=== PATIENT | male | born 1970 | race Caucasian/White ===

== ENCOUNTER 2024-06-26 10:38 | Observation (INO) | payer MEDICARE, SELFPAY ==
[2024-06-26] VITALS (13 sets, daily range): BP systolic 100–139; BP diastolic 20–99; BMI 42.7; BMI 41.4
[2024-06-26 03:47] LABS: % Basophils 0.7 % (0-2); % Immature Granulocytes 0.3 % (0-0.5); % Lymphocytes 33.1 % (20.5-51.1); % Monocytes 12.9 % (1.7-9.3); Absolute Basophils 0.1 10^3/uL (0-0.2); Absolute Eosinophils 0.3 10^3/uL (0-0.7); Absolute Monocytes 1.2 10^3/uL (0.1-0.6); Absolute Neutrophils 4.5 10^3/uL (1.4-6.5); Hematocrit 41.4 % (39.0-52.0); Hemoglobin 13.8 g/dL (13.0-18.0); Mean Corp Hgb Conc. 33.3 g/dL (33.0-37.0); Mean Corpuscular Hgb 28.5 pg (27.0-31.0); Mean Corpuscular Volume 85.4 fL (80.0-94.0); Mean Platelet Volume 9.6 fL (7.4-10.4); Nucleated Red Blood Cells % 0 % (-); Platelet Count 294 10^3/uL (130-400); Red Blood Cell Count 4.85 10^6/uL (4.70-6.10); Red Cell Dist. Width 13.9 % (11.5-14.5)
[2024-06-26 03:49] LABS: Glucose - Point of Care 80 mg/dl (70-99)
[2024-06-26 04:01] LABS: ALT (SGPT) 18 U/L (0-50); AST (SGOT) 27 U/L (17-59); Albumin 4.2 g/dl (3.5-5.0); Alkaline Phosphatase 48 U/L (38-126); Blood Urea Nitrogen 18 mg/dl (9-20); Calcium 9.7 mg/dl (8.4-10.2); Carbon Dioxide 22 mmol/L (22-30); Chloride 104 mmol/L (98-107); Estimated Creatinine Clearance 109 ml/min; Glucose 64 mg/dl (70-99); Potassium 3.4 mmol/L (3.5-5.1); Sodium 135 mmol/L (135-145); Total Bilirubin 0.5 mg/dl (0.2-1.3); Total Protein 7.1 g/dl (6.3-8.2); eGFR > 60.00
--- NOTE | 2024-06-26 04:03 | ED.GENMED ---
History of Present Illness
<Theron Carnes MD, Resident - Last Filed: 06/26/24 07:33>
General
Chief Complaint: Heart Rate Problem
Source: patient and ambulance crew
Time Seen by Provider: 06/26/24 03:38
History of Present Illness
History of Present Illness:
53-year-old male, Mr. Tom Doss, past medical history significant for A-fib status post ablation 2021, ISAMAR on CPAP, PTSD presented to the ER reporting palpitations and severe diaphoresis which all started an hour ago. Patient was talking on phone
with his brother at the time when this started, he feels very weak and mild numbness in his hands, SOB for a couple of minutes. Patient also reports mild chest pressure in the presternal area without any radiation. Patient denies headache,
lightheadedness/dizziness, fever/chills, abdominal pain, bladder/bowel disturbances. No recent history of travel, exposure to sick contacts, calf pain. Patient does not report any current stressors, no caffeine intake. Patient reports vaping
marijuana for PTSD. Patient quit vaping nicotine in 2021. Patient acknowledges that he was not adequately hydrated yesterday.
Past History
<Theron Carnes MD, Resident - Last Filed: 06/26/24 07:33>
Past History
ED Past Medical History: Other (Cellulitis of the abd.)
ED Past Surgical History: Other (Partial bladder removal,)
Social History
Tobacco: Non-smoker
Alcohol: Occasional
Personal: Single
Living: with family
Employment: Employed
Review of Systems
<Theron Carnes MD, Resident - Last Filed: 06/26/24 07:33>
Review of Systems
All Other Systems: ROS reviewed and negative except as documented in HPI and ROS
Phy Exam
<Theron Carnes MD, Resident - Last Filed: 06/26/24 07:33>
Physical Exam
Physical Exam:
GEN: Well appearing, NAD, , patient is profusely sweating ,WDWN
Eyes: PERRLA, EOMs intact, no scleral icterus
HENT: NCAT, oral mucosa moist, no JVD, no cervical adenopathy.
Lungs: CTAB, no wheezes, rales, rhonchi, normal chest wall excursion
Cardiac: Bradycardia, S1, S2+, no M/R/G, peripheral edema 2+. Radial pulses 2+ bilat
Abdomen: S, NT, ND, NABS, no masses or hepatosplenomegaly
Neuro: AO x 3, no focal deficits to BUE/BLE, normal sensation throughout
Skin: No rashes, petechiae. Normal color, no pallor or jaundice.
Psych: Calm, cooperative, proper hygiene
Course
<Karthikela Bi Carnes MD, Resident - Last Filed: 06/26/24 07:33>
Orders/Labs/Results
Orders:
Orders
06/26/24 03:36
Electrocardiogram (*1) Urgent
Reason for Study: Chest Pain
Cardiac Monitoring- Treatment ONCE
EKG- Treatment ONCE
IV Insert/Care/Rem.- Treatment PRN
Pulse Ox/spot Check [RESP] Urgent
Quantity: 1
Special Instructions: ON ROOM AIR
06/26/24 03:38
Complete Blood Count/With Diff Urgent
Comprehensive Metabolic Panel Urgent
Troponin I Urgent
06/26/24 04:43
CR Chest - 2 Views Urgent
Comment:
Reason For Exam: palpitations
06/26/24 05:02
Potassium Chloride 10% Elixir [KCl Elixir] 40 meq PO NOW STA
06/26/24 06:20
EKG [Electrocardiogram (*1)] Urgent
Reason for Study: Syncope
EKG- Treatment ONCE
06/26/24 06:47
Troponin I Stat
Abnormal Lab Results
06/26/24 06/26/24
03:38 06:46
Absolute Monos (auto) 1.2 H 10^3/uL
(0.1-0.6)
Monocytes % 12.9 H %
(1.7-9.3)
Potassium 3.4 L mmol/L
(3.5-5.1)
Glucose 64 L mg/dl
(70-99)
POC Glucose 126 H mg/dl
(70-99)
06/26/24 03:38
06/26/24 03:38
Vital Signs
Initial and Last Documented VS:
Initial Vital Signs
Temp Pulse Resp BP Pulse Ox
97.2 F 60 23 104/88 97
06/26/24 03:37 06/26/24 03:37 06/26/24 03:37 06/26/24 03:37 06/26/24 03:37
Last Documented Vital Signs
Temp Pulse Resp BP Pulse Ox
97.2 F 49 16 125/69 98
06/26/24 03:37 06/26/24 07:15 06/26/24 07:23 06/26/24 07:23 06/26/24 07:23
<Siva Gomes, - Last Filed: 06/26/24 07:31>
Orders/Labs/Results
Orders:
Orders
06/26/24 03:36
Electrocardiogram (*1) Urgent
Reason for Study: Chest Pain
Cardiac Monitoring- Treatment ONCE
EKG- Treatment ONCE
IV Insert/Care/Rem.- Treatment PRN
Pulse Ox/spot Check [RESP] Urgent
Quantity: 1
Special Instructions: ON ROOM AIR
06/26/24 03:38
Complete Blood Count/With Diff Urgent
Comprehensive Metabolic Panel Urgent
Troponin I Urgent
06/26/24 04:43
CR Chest - 2 Views Urgent
Comment:
Reason For Exam: palpitations
06/26/24 05:02
Potassium Chloride 10% Elixir [KCl Elixir] 40 meq PO NOW STA
06/26/24 06:20
EKG [Electrocardiogram (*1)] Urgent
Reason for Study: Syncope
EKG- Treatment ONCE
06/26/24 06:47
Troponin I Stat
Abnormal Lab Results
06/26/24 06/26/24
03:38 06:46
Absolute Monos (auto) 1.2 H 10^3/uL
(0.1-0.6)
Monocytes % 12.9 H %
(1.7-9.3)
Potassium 3.4 L mmol/L
(3.5-5.1)
Glucose 64 L mg/dl
(70-99)
POC Glucose 126 H mg/dl
(70-99)
06/26/24 03:38
06/26/24 03:38
Vital Signs
Initial and Last Documented VS:
Initial Vital Signs
Temp Pulse Resp BP Pulse Ox
97.2 F 60 23 104/88 97
06/26/24 03:37 06/26/24 03:37 06/26/24 03:37 06/26/24 03:37 06/26/24 03:37
Last Documented Vital Signs
Temp Pulse Resp BP Pulse Ox
97.2 F 49 16 125/69 98
06/26/24 03:37 06/26/24 07:15 06/26/24 07:23 06/26/24 07:23 06/26/24 07:23
<Theron Carnes MD, Resident - Last Filed: 06/26/24 07:33>
MDM/Problems Addressed
Differential Diagnosis Includes:
Vasovagal reflex versus ACS versus heart blocks versus dehydration causing electrolyte abnormalities versus hypoglycemia.
MDM/Problems Addressed:
He was bradycardic at presentation, 60. Patient reports he is on flecainide 100 mg twice daily, metoprolol 50 mg twice daily.
Patient feels that his chest pain, diaphoresis and nausea has improved.
CBC unremarkable
Potassium 3.4, hypokalemia repleted. Blood glucose at 64 on arrival, later at 80.
Chest x-ray unremarkable.
1st troponin�0.019
Second troponin�<0.012.
Patient persistently bradycardic between 39-45, likely related to his medications(flecainide, metoprolol)
Patient needs to be observed. Cardiology notified.
<Siva Gomes DO - Last Filed: 06/26/24 07:31>
MDM/Problems Addressed
MDM/Problems Addressed:
Chest pain, diaphoresis, hypokalemia
<Siva Gomes DO - Last Filed: 06/26/24 07:31>
*Radiology
Radiology exam reviewed: preliminary read by ED provider
*Pulse Oximetry
Patient hypoxic: no
*EKG
Interpreted by ED Provider?: Yes
Interpretation: abnormal
Rate: bradycardiac
Rhythm: sinus
QRS Pattern: right bundle branch block
Ischemia: no ischemia
*Rehab Trainer Interpretation
Rate: normal
Interpretation: normal
Rhythm: sinus
*Critical Care Note
Total Time (30-74mins, 75-104mins- exclusive of procedures): Not Applicable
Data Reviewed
Source: patient
Further Testing Considered But Not Given:
considered CTA but no hypoxia, no tachypnea or tachycardia
ED Attending Note
<Theron Carnes MD, Resident - Last Filed: 06/26/24 07:33>
-
Portions of this chart may have been created with voice recognition software.� Occasional wrong word or��sound alike� substitutions may have occurred due to the inherent limitations of voice recognition software.
<Siva Gomes DO - Last Filed: 06/26/24 07:31>
ED Attending Note
Patient seen and examined by attending physician: Yes
I performed a history and physical exam of patient and discussed management with resident, I reviewed resident's note and agree with documented findings and plan of care.: Yes
ED Attending Note:
53-year-old male who was on the phone with his brother when he suddenly developed diaphoresis. Patient states he had a twinge of chest discomfort as well but states it was very mild and felt 'superficial'. Patient denies shortness of breath. No
palpitations. States he feels much better on my evaluation. Exam: Awake and alert, stable, heart rate 60's on alarm security or surveillance monitor in sinus. Assessment plan: Patient has had a history of A-fib in the past. He did take a rhythm strip at home on his
phone and presents it. His heart rate is 108 and appears to be sinus. Initial troponin noted. Check repeat troponin. Otherwise patient appears well. If repeat troponin negative I do think he is safe for discharge and outpatient follow-up
Discharge Plan
Departure
Patient with high blood pressure during this ER visit?: No
Referrals:
Roxann Moyer DO [Non-Admitting Privileges] -
Interventions
Interventions:
*Risk Screen - Suicide Last Done: 06/26/24 03:37
*General Assessment Last Done: 06/26/24 03:37
*Neglect/Abuse Screening Last Done: 06/26/24 03:37
*ED COVID-19 Vaccine History Last Done: 06/26/24 03:37
ED- Cardiac Assessment Last Done: 06/26/24 03:51
ED- Pulmonary Assessment Last Done: 06/26/24 03:51
Discharge Date and Time
Print Language: NEPALI
[2024-06-26 04:12] LABS: Troponin I 0.019 ng/ml
[2024-06-26] MEDS: KCL ELIXIR 40 MEQ PO (05:18)
[2024-06-26 06:54] LABS: Glucose - Point of Care 126 mg/dl (70-99)
[2024-06-26 07:26] LABS: Troponin I < 0.012 ng/ml
--- NOTE | 2024-06-26 10:23 | HPS.HSE ---
Family Physician
-
Family Physician: Amy Bowman MD
Chief Complaint
-
weakness
History of Present Illness
53-year-old male extensive past medical history history of atrial fibrillation follows with [facility] case resolution specialist who is presenting home severe diaphoresis which started earlier today. Patient noticed that his heart rate was lower. State of
significant diaphoresis. No fevers. Dry cough. States usually with atrial fibrillation his heart rates around 10 5-1 10. He was told to call cardiology office if tachycardia persist for greater than 1 hour. Patient denies any chest pain or
lightheadedness or dizziness. Denies any dysuria hematuria or diarrhea. Denies any significant stressors. Denies heavy caffeine intake. Takes marijuana for his PTSD. In the ER patient was found to be bradycardic and was admitted for further
management.
Medical History
Past Medical History
Past Medical History: Reports Other
Additional Past Medical History:
Atrial fibrillation status post ablation
PTSD
Anxiety
BPH
Pericardial effusion status post drainage
Insomnia
BPH
Morbid obesity to excess calories
ISAMAR on CPAP
Past Surgical History: Reports Other
Additional Past Surgical History:
Pericardial drainage
Ablation
Urological surgery
Social History
Alcohol: Former
Drug: Marijuana
Family History
Family History: Not pertinent
Allergies / Home Medications
Allergies reflects when Allergies were last updated in [employer].
Home Medications with original date entered in [employer]
Allergy/Medication List:
Allergies
Allergy/AdvReac Type Severity Reaction Status Date / Time
No Known Allergies Allergy Verified 06/26/24 08:24
Home Medications
Ambien 1 tab PO HS PRN sleep 06/26/24
Atarax 1 tab PO DAILY PRN allergies 06/26/24
Medical Marijuana 1 dose PO DAILY PRN PTSD/anxiety 06/26/24
apixaban 5 mg tablet (Eliquis) 5 mg PO BID 06/26/24
bupropion HCl 150 mg 24 hr tablet, extended release (Wellbutrin XL) 150 mg PO DAILY@0200 06/26/24
bupropion HCl 300 mg 24 hr tablet, extended release (Wellbutrin XL) 300 mg PO DAILY@1400 06/26/24
buspirone 30 mg tablet 30 mg PO BID 06/26/24
finasteride 1 mg tablet 1 mg PO DAILY 06/26/24
flecainide 100 mg tablet 100 mg PO Q12H 06/26/24
gabapentin 1 tab PO BID 06/26/24
loratadine 10 mg tablet (Claritin) 10 mg PO DAILY PRN allergies 06/26/24
metoprolol succinate 50 mg tablet,extended release 24 hr 50 mg PO BID 06/26/24
tamsulosin 0.4 mg capsule 0.8 mg PO DAILY 06/26/24
Review of Systems
-
History Source: Patient
Constitutional: Reports Fatigue
EENT: Reports No Symptoms
Respiratory: Reports No Symptoms
Cardiac: Reports See HPI
Abdomen/GI: Reports No Symptoms
: Reports No Symptoms
Musculoskeletal: Reports No Symptoms
Skin: Reports No Symptoms
Neurological: Reports No Symptoms
Endocrine: Reports No Symptoms
Hematologic/Lymphatic: Reports No Symptoms
Psych: Reports No Symptoms
Physical Exam
Vital Signs
Vital Signs
Temp Pulse Resp BP Pulse Ox
97.5 F 55 24 127/90 100
06/26/24 08:00 06/26/24 08:00 06/26/24 08:00 06/26/24 08:00 06/26/24 08:00
Physical Exam
General: Well Developed, Well Nourished, No Apparent Distress and Morbidly Obese
HEENT: NormoCephalic, Moist mucous membranes and Atraumatic
Respiratory: Clear
Cardiac: S1/S2 and Regular Rhythm; No Murmur or Rub
GI: Soft, Non Tender, Non Distended and Normal Bowel Sounds; No Organomegaly
Rectal: Deferred by Provider
Musculoskeletal: No Clubbing, No Cyanosis and No Edema
Skin: No Rash
Neuro: Awake, Alert, Oriented, AO x 3, No Motor Deficits and Nonfocal/grossly intact
Psych: Calm
Laboratory Results
-
06/26/24 03:38
06/26/24 03:38
Laboratory Results
Total Bilirubin 0.5 mg/dl (0.2-1.3) 06/26/24 03:38
AST 27 U/L (17-59) 06/26/24 03:38
ALT 18 U/L (0-50) 06/26/24 03:38
Alkaline Phosphatase 48 U/L (38-126) 06/26/24 03:38
Troponin I < 0.012 ng/ml D 06/26/24 06:47
Impression/Plan
-
#Bradycardia likely secondary to metoprolol and flecainide
#Atrial fibrillation likely chronic status post ablation
Monitor on telemetry
Trend troponin x 1 normal. Plateau so far.
EKG with normal sinus rhythm with bradycardia heart rate of 47.
Heart rate around 55 on telemetry
Consulted cardiology who is recommending to make following changes which is documented as per there note and will hold off on officially seeing patient for now.
Recommending to decrease Toprol 25 mg twice daily and to decrease flecanide at 50 every 12. Started WITH HOLD PARAMETERS and hold AM dose for both.
Continue Eliquis
Check TSH
Anxiety/PTSD
Continue Wellbutrin and BuSpar
BPH
Continue Flomax and finasteride
ISAMAR on CPAP
Patient stated friend will bring in own machine
Hypokalemia
Replete and monitor
DVT ppx-lovenox
I spent a total of 78 minutes with the patient or on the floor. More than 50% of this time involved counseling and coordination of care.
--- NOTE | 2024-06-26 11:22 | W.PN.UPDATE ---
Update Note
Progress Note Update
Cardiology asked to comment regarding patient's bradycardia. If patient is felt to have symptomatic bradycardia then would hold morning dose of both metoprolol and flecainide and starting tonight change standing dose to metoprolol XL 25 mg twice
daily and flecainide 50 mg twice daily.
[2024-06-26] MEDS: FLOMAX 0.8 MG PO (13:49)
[2024-06-26] MEDS: WELLBUTRIN XL (24 hour extended release) 300 MG PO (13:49)
[2024-06-26 13:58] LABS: Troponin I < 0.012 ng/ml
--- NOTE | 2024-06-26 16:03 | PTCARENOTE ---
RN reviewed with patient his medication list three times. Updated pharmacy on his medication administration time preferences per his home routine. See MAR for details.
[2024-06-26] MEDS: TAMBOCOR PO (16:17)
[2024-06-26] MEDS: TOPROL XL PO (16:17)
[2024-06-26] MEDS: BUSPAR 30 MG PO (16:18)
[2024-06-26] MEDS: ELIQUIS 5 MG PO (16:18)
--- NOTE | 2024-06-26 22:38 | W.PN.UPDATE ---
Update Note
Progress Note Update
pt requesting ambien 10mg. He takes nightly at 0200.
PDMD checked and winsome script active and verified.
Winsome ordered
[2024-06-27] MEDS: PROSCAR 5 MG PO (01:58)
[2024-06-27] MEDS: ELIQUIS 5 MG PO ×2 (01:58→14:12)
[2024-06-27] MEDS: BUSPAR 30 MG PO ×2 (01:58→14:12)
[2024-06-27] MEDS: NEURONTIN 600 MG PO ×2 (01:58→14:12)
[2024-06-27] MEDS: TAMBOCOR PO (01:59)
[2024-06-27] MEDS: TOPROL XL PO (01:59)
[2024-06-27] MEDS: WELLBUTRIN XL (24 hour extended release) 150 MG PO (01:59)
[2024-06-27] MEDS: CLARITIN 10 MG PO (01:59)
[2024-06-27] MEDS: AMBIEN 10 MG PO (01:59)
[2024-06-27 03:43] VITALS: BP 116/67
[2024-06-27 07:00] VITALS: BP 113/59
[2024-06-27 07:14] LABS: % Basophils 0.8 % (0-2); % Eosinophils 2.6 % (0-6); % Immature Granulocytes 0.5 % (0-0.5); % Lymphocytes 25.6 % (20.5-51.1); % Monocytes 13.3 % (1.7-9.3); % Neutrophils 57.2 % (42.2-75.2); Absolute Basophils 0.1 10^3/uL (0-0.2); Absolute Eosinophils 0.2 10^3/uL (0-0.7); Absolute Lymphocytes 1.6 10^3/uL (1.2-3.4); Absolute Monocytes 0.8 10^3/uL (0.1-0.6); Absolute Neutrophils 3.5 10^3/uL (1.4-6.5); Hemoglobin 13.5 g/dL (13.0-18.0); Mean Corp Hgb Conc. 33.8 g/dL (33.0-37.0); Mean Corpuscular Hgb 29.5 pg (27.0-31.0); Mean Corpuscular Volume 87.3 fL (80.0-94.0); Mean Platelet Volume 9.5 fL (7.4-10.4); Nucleated Red Blood Cells % 0 % (-); Platelet Count 222 10^3/uL (130-400); Red Blood Cell Count 4.58 10^6/uL (4.70-6.10); Red Cell Dist. Width 14.4 % (11.5-14.5); White Blood Cell Count 6.2 10^3/uL (4.8-10.8)
[2024-06-27 07:15] LABS: Blood Urea Nitrogen 15 mg/dl (9-20); Carbon Dioxide 24 mmol/L (22-30); Chloride 106 mmol/L (98-107); Estimated Creatinine Clearance 107 ml/min; Glucose 102 mg/dl (70-99); Potassium 4.2 mmol/L (3.5-5.1); Sodium 137 mmol/L (135-145); eGFR > 60.00
[2024-06-27 07:48] LABS: Cortisol, Random 5.3 ug/dl; TSH Reflex To Free T4 0.83 uIU/ml (0.47-4.68)
--- NOTE | 2024-06-27 11:04 | W.PN.HOSP.TC ---
Addendum entered and electronically signed by Ben Montero MD 06/27/24 15:42:
Heart rate improved to the mid 60s. Received reduced dose of Toprol and flecainide. Tolerating well. Seen and eval by cardiology okay for discharge.
More than 30 minutes spent in discharge including
Final examination of the patient
Summarizing hospital stay
Instructions for continuing care to all relevant caregivers
Preparation of discharge records, prescriptions, and referral forms
Total time spent (in minutes): 52
Original Note:
Today's Communication/Plan
-
monitor HR
Cards input
trop negative
monitor on tele
Assessment / Plan
Assessment / Plan
#Bradycardia w/hx of Atrial fibrillation
#Hx of ablation
Monitor on telemetry
trop negative. No chest pain.
EKG with normal sinus rhythm with bradycardia heart rate of 47.
Tele with bradycardia without pauses.
Persistent bradycardia remains even without receiving any reduce dose of metoprolol and flecainide for >24h.
Continue Eliquis
Check TSH-wnl.
Will need cards input for further management.
Anxiety/PTSD
Continue Wellbutrin and BuSpar
BPH
Continue Flomax and finasteride
ISAMAR on CPAP
Patient stated friend will bring in own machine
Hypokalemia
Replete and monitor
Hx of pericardial effusion s/p drainage
DVT ppx-Eliquis
Anticipated Discharge: > 48 hours
Subjective/Interval History
-
Date of Service: June 27, 2024
Remains bradycardic
did not receive toprol/flecaninide
Objective Data
-
Labs:
Laboratory Results
06/27/24
06:40
WBC 6.2
Hgb 13.5
Hct 40.0
Plt Count 222 D
Sodium 137
Potassium 4.2
Chloride 106
Carbon Dioxide 24
BUN 15
Creatinine 1.0
Glucose 102 H
Calcium 9.0
Vital Signs:
Vital Signs
Temp Pulse Resp BP Pulse Ox
97.3 F 53 16 113/59 98
06/27/24 07:00 06/27/24 07:00 06/27/24 07:00 06/27/24 07:00 06/27/24 09:18
I&O
06/26/24 06/27/24 06/28/24
06:59 06:59 06:59
Intake Total 700 / 700 480 / 480
Output Total 575 / 575
Balance 125 / 125 480 / 480
Physical Exam
-
General: Well Developed, No Apparent Distress and Morbidly Obese
HEENT: Normocephalic, Atraumatic and Moist Mucous Membranes
Respiratory: Clear to Auscultation
Cardiac: Regular Rhythm, S1/S2 and Bradycardic; Negative Murmur, Rub or Gallop
GI: Soft, Nontender, Nondistended and Normal Bowel Sounds; Negative Organomegaly
Rectal: Deferred by Provider
Musculoskeletal: No Clubbing, No Cyanosis and No Edema
Skin: Negative Rash
Neuro: Awake, AO x 3, No Motor Deficits and Nonfocal/Grossly Intact
Psych: Calm
[2024-06-27 11:11] VITALS: BP 133/71
[2024-06-27 12:17] VITALS: BP 127/74; BP 166/94; PULSE 61
--- NOTE | 2024-06-27 13:43 | CON.CAR ---
Consultation
Consultation Request
Date/Time Consultation Requested: June 27, 2024
Date/Time Consultation Performed: June 27, 2024
Requesting Provider: Hospitalist
Performing Provider: Dr. Demetrio Huffman
Reason for Consultation: Symptomatic paroxysmal atrial fibrillation
Medical History
-
Chief Complaint: Palpitations, dizziness, diaphoresis
History of Present Illness:
He presented to the emergency department at [facility] yesterday after noting that his heart rate was racing up to about 180 bpm and he was in atrial fibrillation, he checked his Kardia monitor which confirmed this. This is not too atypical for him
but symptoms persisted. He took his scheduled metoprolol and flecainide an hour earlier. Soon after this he felt dizzy and somewhat diaphoretic. No chest pain. No shortness of breath. He checked his monitor again and he remained in atrial
fibrillation with rapid rates. He called emergency services. By the time emergency services arrived he recalls that he was not feeling quite as bad but was not feeling quite back to normal either. He tells me that emergency services told him his
heart rate was now low, in the 40s.
He has a medical history notable for paroxysmal atrial fibrillation. He underwent what sounds like an ablation for atrial fibrillation and 2021 at an outside institution. This was complicated by pericardial effusion which required emergency
drainage.
He now follows with drill grinder out of the [facility] system in [facility]
He has been managed with metoprolol and flecainide.
Past medical history:
Paroxysmal atrial fibrillation
Ablation in 2019 at an outside institution complicated by pericardial effusion requiring emergency drainage
PTSD
Anxiety disorder
Morbid obesity but has lost considerable weight over the past couple of years
Obstructive sleep apnea on CPAP
Social History
Tobacco: Other (Marijuana)
Alcohol: Former
Drug: Marijuana
Personal: Single
Living: With Family
Allergies / Home Medications
Allergy/AdvReac Type Severity Reaction Status Date / Time
No Known Allergies Allergy Verified 06/26/24 08:24
�Medication �Instructions �Recorded �Confirmed �Type
Ambien 10 mg PO HS PRN sleep 06/26/24 06/26/24 History
Atarax 1 tab PO DAILY PRN allergies 06/26/24 06/26/24 History
Medical Marijuana 1 dose PO DAILY PRN PTSD/anxiety 06/26/24 06/26/24 History
apixaban 5 mg tablet (Eliquis) 5 mg PO BID Blood Clot 06/26/24 06/26/24 History
Prevention/Tx
bupropion HCl 150 mg 24 hr tablet, 150 mg PO DAILY@0200 Depression 06/26/24 06/26/24 History
extended release (Wellbutrin XL)
bupropion HCl 300 mg 24 hr tablet, 300 mg PO DAILY@1400 Depression 06/26/24 06/26/24 History
extended release (Wellbutrin XL)
buspirone 30 mg tablet 30 mg PO BID Mental Health/Anxiety 06/26/24 06/26/24 History
finasteride 5 mg tablet 5 mg PO DAILY@0200 Urinary Issue 06/26/24 06/26/24 History
flecainide 100 mg tablet 100 mg PO Q12H Arrhythmia 06/26/24 06/26/24 History
gabapentin 600 mg PO BID Neurological 06/26/24 06/26/24 History
Condition
loratadine 10 mg tablet (Claritin) 10 mg PO DAILY PRN allergies 06/26/24 06/26/24 History
metoprolol succinate 50 mg 50 mg PO BID Blood Pressure 06/26/24 06/26/24 History
tablet,extended release 24 hr
tamsulosin 0.4 mg capsule 0.8 mg PO DAILY@1400 Urinary Issue 06/26/24 06/26/24 History
Review of Systems
-
History Source: Patient
All other systems: Negative unless noted
Constitutional: Fatigue
EENT: No Symptoms
Respiratory: No Symptoms
Cardiac: Palpitations
Abdomen/GI: No Symptoms
: No Symptoms
Musculoskeletal: No Symptoms
Skin: No Symptoms
Endocrine: No Symptoms
Hematologic/Lymphatic: No Symptoms
Physical Exam
Vital Signs
Temp Pulse Resp BP Pulse Ox
98 F 60 16 133/71 99
06/27/24 11:11 06/27/24 11:11 06/27/24 11:11 06/27/24 11:11 06/27/24 11:11
Lab Results
06/27/24 06:40
06/27/24 06:40
Troponin I < 0.012 ng/ml 06/26/24 13:07
Physical Exam
General: Well Developed, Well Nourished and Other (Mildly anxious appearing)
HEENT: Normocephalic, Anicteric and Moist Mucous Membranes
Respiratory: Clear and Non Labored Respirations
Cardiac: S1/S2, Regular Rhythm and Murmur (No murmurs rubs or gallops)
Breast: Deferred by me
GI: Soft, Non Tender, Non Distended and Normal Bowel Sounds
Rectal: Deferred by Provider
Musculoskeletal: No Clubbing, No Cyanosis and No Edema
Skin: Warm and Dry
Neuro: Awake, Alert and Oriented
Psych: Other (Mildly anxious appearing)
Impression / Plan
-
Cardiology asked to comment regarding patient's bradycardia. After long discussion with the patient he does not have any symptoms related to his mild bradycardia. It appears as though he has obtained significant symptom relief from paroxysmal
atrial fibrillation with antiarrhythmic drug therapy which has included beta-edna as well as flecainide. My recommendation is to reduce his outpatient dosing to metoprolol XL 25 mg twice daily and flecainide 50 mg twice daily in the short-term.
I have also instructed him to call his drill grinder and major account representative to discuss alternatives to rhythm control management although the patient tells me he does not want to even consider another ablation given that he had the complication in
2021 although this was at an outside institution so I have asked him to keep his mind open regarding the potential benefit of an ablation which might eliminate the need for rhythm control drug therapy.
I have no objection to discharge home today.
Data Reviewed
-
EKG: Tracing Personally Visualized and interpreted and Discussed with Patient
Labs: Labs Reviewed by me
[2024-06-27] MEDS: FLOMAX 0.8 MG PO (14:12)
[2024-06-27] MEDS: TAMBOCOR 50 MG PO (14:12)
[2024-06-27] MEDS: WELLBUTRIN XL (24 hour extended release) 300 MG PO (14:12)
[2024-06-27] MEDS: TOPROL XL 25 MG PO (14:13)
[2024-06-27 15:34] VITALS: BP 120/70
--- NOTE | 2024-06-27 15:36 | W.DCSUMMARY ---
Discharge Summary
Discharge Data
Date of Admission: 06/26/24
Date of Discharge: 06/27/24
-
Pending Results: No
Hospital Course
53-year-old male past medical history of anxiety, PTSD, BPH, ISAMAR on CPAP, pericardial effusion status post drainage, morbid obesity due to excess calories is presenting from home with weakness and diaphoresis. In the ER patient was found to have
bradycardia with a heart rate of 38. Troponin were checked and found to be negative. EKG with bradycardia was noted. Patient was monitored on telemetry. Cardiology was consulted. TSH was within normal limits. Patient was stable on room air.
Cardiology recommended to decrease Toprol to 50 mg twice daily and flecainide decreased to 50 mg every 12. Patient heart rate improved to mid 60s. Patient tolerated low-dose of Toprol and flecainide. Patient was recommended to follow-up
outpatient with his primary nuclear cardiology technologist. Patient was eval by PT and heart rate with exertion was normal.
Discharge Plan
-
Patient Disposition: Home (Routine Discharge)
Discharge Diagnosis/Procedures: Bradycardia with atrial fibrillation
Condition: Fair
Diet: As tolerated
Activity: With assistance
Driving Restrictions: As prior to admission
Activity Restrictions/Additional Instructions:
Follow-up with your primary nuclear cardiology technologist.
Referrals:
Amy Bowman MD [Family Provider] - in less than 1 week
Prescriptions:
New
flecainide 50 mg Tablet
50 mg PO Q12H 30 Days Qty: 60 0RF
metoprolol succinate 25 mg Tablet Extended Release 24 Hr
25 mg PO BID 30 Days Qty: 60 0RF
Continued
Ambien
10 mg PO HS PRN (Reason: sleep)
Atarax
1 tab PO DAILY PRN (Reason: allergies)
tamsulosin 0.4 mg Capsule
0.8 mg PO DAILY@1400
buspirone 30 mg Tablet
30 mg PO BID
loratadine [Claritin] 10 mg Tablet
10 mg PO DAILY PRN (Reason: allergies)
bupropion HCl [Wellbutrin XL] 300 mg Tablet Extended Release 24 Hr
300 mg PO DAILY@1400
bupropion HCl [Wellbutrin XL] 150 mg Tablet Extended Release 24 Hr
150 mg PO DAILY@0200
Eliquis 5 mg Tablet
5 mg PO BID
Medical Marijuana
1 dose PO DAILY PRN (Reason: PTSD/anxiety)
Rx Instructions:
Patient reports he uses edible or tincture daily
gabapentin
600 mg PO BID
finasteride 5 mg tablet
5 mg PO DAILY@0200
Discontinued
metoprolol succinate 50 mg Tablet Extended Release 24 Hr
50 mg PO BID
flecainide 100 mg Tablet
100 mg PO Q12H
Discharge Orders:
Discharge Patient (As Directed); Ordered 06/27/24
Ordered By: Ben Montero
Discharge Date and Time
Print Language: TONGAN
--- NOTE | 2024-06-27 15:45 | CM ---
met with patient at bedside.patient lives alone in apt in private home,no sami,his bed and bath is on the frist floor,he amb i ,is i with his ad.his pcp is [facility] and he uses [facility]...he has had vn after
surgery and has been in ip rhab but cannot remember the facility.
PMH: afib sp ablation,obesity sp gastric bypass surgery,ptsd,sleep apnea uses cpap at night.
patient is adm with afib.he was seen by cards who suggested reducing his metoprolol.he is stable for dc home today with no needs.
== END 2024-06-27 18:03 | disposition home or self-care (01) ==
LOC: 4 EAST ACU 10:38
PROVIDERS: Student in an Organized Health Care Education/Training Program; ADMITTING PHYSICIAN Hospitalist; CONSULT PHYSICIAN Internal Medicine Cardiovascular Disease; EMERGENCY PHYSICIAN Emergency Medicine; FAMILY PHYSICIAN Family Medicine
DX: R00.1 Bradycardia, unspecified (principal); R00.2 Palpitations; I48.0 Paroxysmal atrial fibrillation; F43.10 Post-traumatic stress disorder, unspecified; F12.90 Cannabis use, unspecified, uncomplicated; G47.33 Obstructive sleep apnea (adult) (pediatric); R61 Generalized hyperhidrosis; R07.89 Other chest pain; R20.0 Anesthesia of skin; R53.1 Weakness; R06.02 Shortness of breath; R55 Syncope and collapse; R11.0 Nausea; E87.6 Hypokalemia; G47.00 Insomnia, unspecified; I45.10 Unspecified right bundle-branch block; R05.9 Cough, unspecified; F41.9 Anxiety disorder, unspecified; N40.0 Benign prostatic hyperplasia without lower urinary tract symptoms; I31.39 Other pericardial effusion (noninflammatory); E66.01 Morbid (severe) obesity due to excess calories; Z68.41 Body mass index [BMI] 40.0-44.9, adult; Z79.01 Long term (current) use of anticoagulants
CPT/HCPCS: 71046; 80048; 80053; 82533; 82962; 84443; 84484; 85025; 93005; 94760; 97162; 99285; G0378

== ENCOUNTER 2024-10-30 03:42 | Emergency (ER) | payer MEDICARE, SELFPAY ==
[2024-10-30 03:45] VITALS: BP 122/85; BMI 41.3
[2024-10-30 03:58] LABS: % Basophils 0.6 % (0-2); % Eosinophils 2.1 % (0-6); % Immature Granulocytes 0.1 % (0-0.5); % Lymphocytes 23.2 % (20.5-51.1); % Monocytes 8.8 % (1.7-9.3); % Neutrophils 65.2 % (42.2-75.2); Absolute Eosinophils 0.2 10^3/uL (0-0.7); Absolute Lymphocytes 1.6 10^3/uL (1.2-3.4); Absolute Monocytes 0.6 10^3/uL (0.1-0.6); Absolute Neutrophils 4.6 10^3/uL (1.4-6.5); Hematocrit 42.7 % (39.0-52.0); Hemoglobin 13.9 g/dL (13.0-18.0); Mean Corp Hgb Conc. 32.6 g/dL (33.0-37.0); Mean Corpuscular Hgb 28.7 pg (27.0-31.0); Mean Platelet Volume 9.9 fL (7.4-10.4); Nucleated Red Blood Cells % 0 % (-); Platelet Count 227 10^3/uL (130-400); Red Blood Cell Count 4.85 10^6/uL (4.70-6.10); Red Cell Dist. Width 13.2 % (11.5-14.5)
[2024-10-30 04:02] LABS: Glucose - Point of Care 112 mg/dl (70-99)
[2024-10-30 04:11] LABS: ALT (SGPT) 18 U/L (0-50); AST (SGOT) 22 U/L (17-59); Albumin 3.8 g/dl (3.5-5.0); Alkaline Phosphatase 42 U/L (38-126); Blood Urea Nitrogen 9 mg/dl (9-20); Calcium 8.8 mg/dl (8.4-10.2); Carbon Dioxide 25 mmol/L (22-30); Chloride 100 mmol/L (98-107); Estimated Creatinine Clearance 117 ml/min; Glucose 131 mg/dl (70-99); Sodium 134 mmol/L (135-145); Total Bilirubin 0.6 mg/dl (0.2-1.3); Total Protein 6.5 g/dl (6.3-8.2); eGFR > 60.00
--- NOTE | 2024-10-30 04:35 | ED.GENMED ---
History of Present Illness
General
Chief Complaint: Heart Rate Problem
Source: patient, ambulance crew and previous hospital records (Previous hospitalization June of this year for bradycardia. Metoprolol and flecainide doses were decreased)
Exam Limitations: none
Time Seen by Provider: 10/30/24 04:26
Nursing documentation reviewed up to this point in time: agreed with
History of Present Illness
History of Present Illness:
This is a 54-year-old morbidly obese gentleman who has history of PAF chronically maintained on flecainide and metoprolol. History of PAF ablation 2021 at an outside institution, complicated by pericardial effusion required emergency drainage. He
has history of PTSD, BPH, ISAMAR on CPAP. Hospitalized here June of this year initially with complaints of palpitations, rapid heart rate but upon arrival to the ED found to be bradycardic in the 30s. Metoprolol and flecainide doses were decreased
and he was discharged with heart rate trending up into the 60s. He has since followed up with his mercerizing range controller from [facility] and states his metoprolol dose was recently further decreased with new dose starting yesterday.
Tonight he developed abrupt onset of lightheadedness and his smart watch noted his heart rate was at 150. He also checked his CardioNet which noted heart rate of 150 but unable to verify the rhythm.
Upon EMS arrival patient noted to be in normal sinus rhythm. He admits to feeling improved upon EMS arrival.
No further lightheadedness nor dizziness, no further palpitations. He denies chest pain, denies coughing or shortness of breath. He has not had a fever nor chills. No recent GI illness, no abdominal pain.
Past History
Past History
ED Past Medical History: Arrthythmia (PAF), Psychiatric (PTSD) and Other (Obstructive sleep apnea/CPAP, BPH, morbid obesity)
ED Past Surgical History: Cardiac (A-fib ablation 2021 complicated by pericardial effusion requiring drainage) and Other (Partial bladder removal,)
Social History
Tobacco: Non-smoker
Alcohol: Occasional
Drug: Marijuana
Personal: Single
Living: with family
Employment: Employed
Family History
Family History: Other (Noncontributory)
Phy Exam
Physical Exam
Physical Exam:
GENERAL: 54-year-old obese gentleman appears somewhat older than stated age. Bright and alert, pleasant, appears in no acute distress. Doing work on his laptop.
EYE: anicteric
NECK: Supple, nontender, no meningismus, no significant adenopathy.
ENT: oral mucosa is moist. No rhinorrhea.
CARDIAC: Regular rate and rhythm. no murmur.
LUNGS: Clear breath sounds bilaterally, no acute respiratory distress, no wheezes/rales/rhonchi
ABDOMEN: Soft, nondistended, without focal tenderness
NEUROLOGICAL: Alert and oriented x3, no focal neuro deficits. Gait is gillespie and steady.
SKIN: Warm and dry, normal color, skin intact. No rash.
MUSCULOSKELETAL: No C/C/E. peripheral pulses are full and equal b/l. No palpable tenderness.
PSYCH: Normal and appropriate interaction.
Course
Orders/Labs/Results
Orders:
Orders
10/30/24 03:49
Electrocardiogram (*1) Urgent
Reason for Study: Chest Pain
Cardiac Monitoring- Treatment ONCE
EKG- Treatment ONCE
IV Insert/Care/Rem.- Treatment PRN
Pulse Ox/spot Check [RESP] Urgent
Quantity: 1
Special Instructions: ON ROOM AIR
10/30/24 03:51
Complete Blood Count/With Diff Urgent
Comprehensive Metabolic Panel Urgent
Abnormal Lab Results
10/30/24 10/30/24
03:51 04:00
MCHC 32.6 L g/dL
(33.0-37.0)
Sodium 134 L mmol/L
(135-145)
Glucose 131 H mg/dl
(70-99)
POC Glucose 112 H mg/dl
(70-99)
10/30/24 03:51
10/30/24 03:51
Vital Signs
Initial and Last Documented VS:
Initial Vital Signs
Temp Pulse Resp BP Pulse Ox
97.8 F 92 14 122/85 97
10/30/24 03:45 10/30/24 03:45 10/30/24 03:45 10/30/24 03:45 10/30/24 03:45
Last Documented Vital Signs
Temp Pulse Resp BP Pulse Ox
97.8 F 108 32 122/85 98
10/30/24 03:45 10/30/24 04:00 10/30/24 04:00 10/30/24 03:45 10/30/24 04:00
MDM/Problems Addressed
Differential Diagnosis Includes:
Patient presents with lightheadedness and palpitations with reported elevated heart rate of 150 at home. Concern for PAF.
Symptoms resolved prior to EMS arrival and noted to be normal sinus rhythm prehospital and remains in normal sinus rhythm upon arrival to the ED.
EKG is similar to previous. Save for heart rate has trended up from the 60s to now the 80s.
Labs are unremarkable and he remains hemodynamically stable.
Patient may have had an episode of A-fib but self-limited. No accompanying shortness of breath nor chest pain. Symptoms have resolved without return.
Will discharge to home with recommendations for prompt follow-up with his primary mercerizing range controller.
Return precautions discussed.
Chronic conditions affecting care: Arrhythmia
*Pulse Oximetry
Patient hypoxic: no
*EKG
Interpreted by ED Provider?: Yes
Interpretation: normal
Comparison EKG: no changes ( Unchanged from previous save her heart rate is increased from 47 to now 92)
Rate: normal
Rhythm: sinus
[place]: normal axis
Interval: normal interval
QRS Pattern: normal QRS
Ischemia: no ischemia
*Rough And Trueing Machine Operator Interpretation
Rate: normal
Interpretation: normal
Rhythm: sinus
*Critical Care Note
Total Time (30-74mins, 75-104mins- exclusive of procedures): Not Applicable
ED Attending Note
-
Portions of this chart may have been created with voice recognition software.� Occasional wrong word or��sound alike� substitutions may have occurred due to the inherent limitations of voice recognition software.
Discharge Plan
Departure
Patient Disposition: Home (Routine Discharge)
Date of Disposition: 10/30/24
Time of Disposition: 04:35
Patient with high blood pressure during this ER visit?: No
Condition: Good
Discharge Problem:
Heart palpitations
Instructions: Palpitations (DC)
Prescriptions:
No Action
Ambien
10 mg PO HS PRN (Reason: sleep)
Atarax
1 tab PO DAILY PRN (Reason: allergies)
tamsulosin 0.4 mg Capsule
0.8 mg PO DAILY@1400
buspirone 30 mg Tablet
30 mg PO BID
loratadine [Claritin] 10 mg Tablet
10 mg PO DAILY PRN (Reason: allergies)
bupropion HCl [Wellbutrin XL] 300 mg Tablet Extended Release 24 Hr
300 mg PO DAILY@1400
bupropion HCl [Wellbutrin XL] 150 mg Tablet Extended Release 24 Hr
150 mg PO DAILY@0200
Eliquis 5 mg Tablet
5 mg PO BID
Medical Marijuana
1 dose PO DAILY PRN (Reason: PTSD/anxiety)
Rx Instructions:
Patient reports he uses edible or tincture daily
gabapentin
600 mg PO BID
finasteride 5 mg tablet
5 mg PO DAILY@0200
flecainide 50 mg Tablet
50 mg PO Q12H 30 Days Qty: 60 0RF
metoprolol succinate 25 mg Tablet Extended Release 24 Hr
25 mg PO BID 30 Days Qty: 60 0RF
Activity Restrictions/Additional Instructions:
Continue current medications.
Touch base with your mercerizing range controller for recheck.
Interventions
Interventions:
*Risk Screen - Suicide Last Done: 10/30/24 03:45
*General Assessment Last Done: 10/30/24 03:45
*Neglect/Abuse Screening Last Done: 10/30/24 03:45
*ED COVID-19 Vaccine History Last Done: 10/30/24 03:45
ED- Cardiac Assessment Last Done: 10/30/24 04:10
ED- Pulmonary Assessment Last Done: 10/30/24 04:10
Discharge Date and Time
Print Language: MACANESE
== END 2024-10-30 05:00 | disposition home or self-care (01) ==
LOC: EMR 03:42
PROVIDERS: EMERGENCY PHYSICIAN Emergency Medicine; FAMILY PHYSICIAN Family Medicine
DX: R00.2 Palpitations (principal); R42 Dizziness and giddiness; E66.01 Morbid (severe) obesity due to excess calories; I48.0 Paroxysmal atrial fibrillation; F43.10 Post-traumatic stress disorder, unspecified; G47.33 Obstructive sleep apnea (adult) (pediatric); N40.0 Benign prostatic hyperplasia without lower urinary tract symptoms; M19.90 Unspecified osteoarthritis, unspecified site; I73.00 Raynaud's syndrome without gangrene; Z79.899 Other long term (current) drug therapy; Z79.01 Long term (current) use of anticoagulants; Z98.84 Bariatric surgery status
CPT/HCPCS: 99284; 94760; 80053; 82962; 85025; 93005

== ENCOUNTER 2024-11-29 01:13 | Emergency (ER) | payer MEDICARE, SELFPAY ==
[2024-11-29] VITALS (13 sets, daily range): BP systolic 75–122; BP diastolic 42–86; BMI 39.6
[2024-11-29 01:37] LABS: % Basophils 0.6 % (0-2); % Eosinophils 1.3 % (0-6); % Immature Granulocytes 0.2 % (0-0.5); % Lymphocytes 27.1 % (20.5-51.1); % Monocytes 12.6 % (1.7-9.3); % Neutrophils 58.2 % (42.2-75.2); Absolute Eosinophils 0.1 10^3/uL (0-0.7); Absolute Lymphocytes 1.7 10^3/uL (1.2-3.4); Absolute Monocytes 0.8 10^3/uL (0.1-0.6); Absolute Neutrophils 3.7 10^3/uL (1.4-6.5); Hematocrit 41.1 % (39.0-52.0); Hemoglobin 13.9 g/dL (13.0-18.0); Mean Corp Hgb Conc. 33.8 g/dL (33.0-37.0); Mean Corpuscular Hgb 28.9 pg (27.0-31.0); Mean Corpuscular Volume 85.4 fL (80.0-94.0); Mean Platelet Volume 9.7 fL (7.4-10.4); Nucleated Red Blood Cells % 0 % (-); Platelet Count 216 10^3/uL (130-400); Red Blood Cell Count 4.81 10^6/uL (4.70-6.10); White Blood Cell Count 6.4 10^3/uL (4.8-10.8)
[2024-11-29 01:55] LABS: Troponin I < 0.012 ng/ml
[2024-11-29 01:57] LABS: ALT (SGPT) 14 U/L (0-50); AST (SGOT) 19 U/L (17-59); Albumin 3.5 g/dl (3.5-5.0); Alkaline Phosphatase 48 U/L (38-126); Blood Urea Nitrogen 10 mg/dl (9-20); Calcium 8.4 mg/dl (8.4-10.2); Carbon Dioxide 23 mmol/L (22-30); Chloride 104 mmol/L (98-107); Glucose 127 mg/dl (70-99); Sodium 136 mmol/L (135-145); Total Bilirubin 0.9 mg/dl (0.2-1.3); Total Protein 6.1 g/dl (6.3-8.2); eGFR > 60.00
[2024-11-29] MEDS: NSS 1000 IV (03:21)
--- NOTE | 2024-11-29 03:59 | ED.GENMED ---
Addendum entered and electronically signed by Adal Lazaro DO 11/29/24 06:51:
EKG shows atrial fibrillation with a rapid ventricular response rate of 117. Incomplete right bundle branch block present. No evidence of acute ischemia present. When compared with previous EKG dated October 30, 2024, patient is now in atrial
fibrillation.
Original Note:
History of Present Illness
General
Chief Complaint: Cardiac Symptoms
Source: patient
Exam Limitations: none
Time Seen by Provider: 11/29/24 01:32
Nursing documentation reviewed up to this point in time: agreed with
History of Present Illness
History of Present Illness:
Pleasant 54-year-old male presents to the emergency department with heart palpitations. He states that he was watching a scary movie which triggered his cardiac alarm. Patient took extra flecainide after this event with no immediate relief.
Denies chest pain or shortness of breath. Denies fever, chills, nausea or vomiting. Patient states that he has had similar symptoms in the past. Denies any current chest pain but still reports palpitations.
Past History
Past History
ED Past Medical History: Arrthythmia (PAF), Psychiatric (PTSD) and Other (Obstructive sleep apnea/CPAP, BPH, morbid obesity)
ED Past Surgical History: Cardiac (A-fib ablation 2021 complicated by pericardial effusion requiring drainage) and Other (Partial bladder removal,)
Social History
Tobacco: Non-smoker
Alcohol: Occasional
Drug: Marijuana
Personal: Single
Living: with family
Employment: Employed
Family History
Family History: Other (Noncontributory)
Review of Systems
Review of Systems
Allergies reviewed?: Yes
All Other Systems: ROS reviewed and negative except as documented in HPI and ROS
Constitutional: Reports no symptoms
EENT: Reports no symptoms
Respiratory: Reports no symptoms
Cardiac: Reports palpitations
ABD/GI: Reports no symptoms
: Reports no symptoms
Musculoskeletal: Reports no symptoms
Skin: Reports no symptoms
Neurological: Reports no symptoms
Endocrine: Reports no symptoms
Hematologic/Lymphatic: Reports no symptoms
Psychiatric: Reports no symptoms
Phy Exam
General Physical Exam
General Presentation: well appearing, no apparent distress and other (Anxious affect)
General Skin: warm and dry
General Habitus: normal and obese
General Mental: alert
General Hydration: appears well hydrated
ENT Exam
ENT Exam: EOMI, pharynx normal, neck supple and normocephalic
Eye Exam
Eye Exam: PERRL, cornea clear and conjunctiva normal
Cardiovascular Exam
Cardiovascular Exam: no edema, no murmur, normal peripheral pulses and irregularly irregular
Pulmonary Exam
Pulmonary Exam: lungs clear, no respiratory distress, no rales, no crackles, no rhonchi, no stridor, no wheezing and no cough
Gastrointestinal Exam
Gastrointestinal Exam: normal bowel sounds, non tender, soft, no organomegaly, no pulsatile mass and non distended
Neurological Exam
Neurological Exam: alert, oriented x3, no motor deficits and speech normal
Musculoskeletal Exam
Musculoskeletal Exam: full ROM and no edema
Skin Exam
Skin Exam: normal color, warm/dry, no rash, no petechia and other (Multiple tattoos)
Psychiatric Exam
Psychiatric Exam: normal mood/affect and anxious
Course
Orders/Labs/Results
Orders:
Orders
11/29/24 01:13
EKG [Electrocardiogram (*1)] Urgent
Reason for Study: Atrial Fibrillation
11/29/24 01:14
EKG- Treatment ONCE
11/29/24 01:26
Complete Blood Count/With Diff Urgent
11/29/24 01:27
Comprehensive Metabolic Panel Urgent
Troponin I Urgent
11/29/24 03:17
0.9% Sodium Chloride 1000 ml [Nss] 1,000 ml IV BOLUS
11/29/24 04:23
Diltiazem HCl [Cardizem] 20 mg IV NOW STA
11/29/24 05:01
0.9% Sodium Chloride 500 ml [Nss] 500 ml IV BOLUS
Abnormal Lab Results
11/29/24 11/29/24
01:27
Absolute Monos (auto) 0.8 H 10^3/uL
(0.1-0.6)
Monocytes % 12.6 H %
(1.7-9.3)
Glucose 127 H mg/dl
(70-99)
Total Protein 6.1 L g/dl
(6.3-8.2)
11/29/24 01:26
11/29/24 01:27
Vital Signs
Initial and Last Documented VS:
Initial Vital Signs
Temp Pulse Resp BP Pulse Ox
98.2 F 119 16 107/70 96
11/29/24 01:18 11/29/24 01:18 11/29/24 01:18 11/29/24 01:18 11/29/24 01:18
Last Documented Vital Signs
Temp Pulse Resp BP Pulse Ox
98.2 F 78 16 108/86 95
11/29/24 01:18 11/29/24 06:00 11/29/24 06:00 11/29/24 06:00 11/29/24 03:12
*Critical Care Note
Total Time (30-74mins, 75-104mins- exclusive of procedures): Not Applicable
Update Note
Update Note:
Patient is still in atrial fibrillation, rate controlled. He wishes to be discharged home.
Called Dr. Martinez's office at [phone]. Awaiting callback.
Spoke with Dr. Oquendo, on-call for Dr. Martinez. After reviewing the case, he stated it would be acceptable for patient to be discharged home. Discussed this plan with patient who is in agreement. He will call his recording studio set up worker
Ivon. Patient has no further question and is eager to be discharged. He is still in atrial fibrillation.
ED Attending Note
-
Portions of this chart may have been created with voice recognition software.� Occasional wrong word or��sound alike� substitutions may have occurred due to the inherent limitations of voice recognition software.
Discharge Plan
Departure
Patient Disposition: Home (Routine Discharge)
Date of Disposition: 11/29/24
Time of Disposition: 06:37
Patient with high blood pressure during this ER visit?: No
Condition: Good
Discharge Problem:
Paroxysmal atrial fibrillation
Instructions: Atrial fibrillation - Discharge instructions
Prescriptions:
No Action
Ambien
10 mg PO HS PRN (Reason: sleep)
Atarax
1 tab PO DAILY PRN (Reason: allergies)
tamsulosin 0.4 mg Capsule
0.8 mg PO DAILY@1400
buspirone 30 mg Tablet
30 mg PO BID
loratadine [Claritin] 10 mg Tablet
10 mg PO DAILY PRN (Reason: allergies)
bupropion HCl [Wellbutrin XL] 300 mg Tablet Extended Release 24 Hr
300 mg PO DAILY@1400
bupropion HCl [Wellbutrin XL] 150 mg Tablet Extended Release 24 Hr
150 mg PO DAILY@0200
Eliquis 5 mg Tablet
5 mg PO BID
Medical Marijuana
1 dose PO DAILY PRN (Reason: PTSD/anxiety)
Rx Instructions:
Patient reports he uses edible or tincture daily
gabapentin
600 mg PO BID PRN (Reason: Neurological Condition)
finasteride 5 mg tablet
5 mg PO DAILY@0200
metoprolol succinate 25 mg Tablet Extended Release 24 Hr
25 mg PO BID 30 Days Qty: 60 0RF
flecainide 50 mg tablet
100 mg PO Q12H
Referrals:
YOLY TAYLOR MD [Family Provider] -
Activity Restrictions/Additional Instructions:
Please follow up with Dr Del Valle, your recording studio set up worker. [phone].
Please continue to take your medicines as previously directed.
It was a pleasure meeting you and taking part in your care. We hope for your continued healing and wellness.
Please read discharge instructions in their entirety. However, they are for general education and may not describe your exact diagnosis at discharge. Information on your ER visit and medical conditions were discussed with you along with appropriate
follow up information...
If indicated, please take your medications as instructed and indicated on discharge paperwork.
Please schedule a follow up appointment as directed. Call to schedule an appointment
Please return to the emergency department with ANY change in, persisting, or worsening of symptoms. If any of your symptoms do not improve, or persist, or become more severe within 6-12 hours, please return to the emergency department for further
care.
Please return to the emergency department if you develop a headache, neck pain/stiffness, fever greater than 100.4F, chest pain, shortness of breath, persistent nausea, vomiting, slurred speech, difficulty walking, numbness/tingling, weakness, signs
of infection or any other symptoms that are worrisome to you.
If you have any questions or concerns please do not hesitate to call the Hospital at or E-mail me directly at [email or web address]
Interventions
Interventions:
*Risk Screen - Suicide Last Done: 11/29/24 01:18
*General Assessment Last Done: 11/29/24 01:18
*Neglect/Abuse Screening Last Done: 11/29/24 01:18
ED- Fall Risk Assessment Last Done: 11/29/24 01:18
*ED COVID-19 Vaccine History Last Done: 11/29/24 01:18
ED- Pulmonary Assessment Last Done: 11/29/24 01:32
ED- Cardiac Assessment Last Done: 11/29/24 01:32
Discharge Date and Time
Print Language: BHUTANESE
[2024-11-29] MEDS: CARDIZEM 20 MG IV (04:34)
[2024-11-29] MEDS: NSS 500 IV (05:02)
--- NOTE | 2024-11-29 06:54 | EDRN ---
per the provider Dr. Lazaro the pt ambulated around the unit, the pt had no c/o lightheadedness, no c/o dizziness, no c/o nausea, VS WNL, no s/s of distress
== END 2024-11-29 06:56 | disposition home or self-care (01) ==
LOC: EMR 01:13
PROVIDERS: EMERGENCY PHYSICIAN Student in an Organized Health Care Education/Training Program; FAMILY PHYSICIAN Family Medicine
DX: I48.0 Paroxysmal atrial fibrillation (principal); F43.10 Post-traumatic stress disorder, unspecified; G47.33 Obstructive sleep apnea (adult) (pediatric); E66.01 Morbid (severe) obesity due to excess calories; N40.0 Benign prostatic hyperplasia without lower urinary tract symptoms
CPT/HCPCS: 99283; 96374; 96361; 80053; 84484; 85025; 93005

== ENCOUNTER 2024-12-04 21:15 | Emergency (ER) | payer MEDICARE, SELFPAY ==
[2024-12-04 21:21] VITALS: BP 113/80
[2024-12-04 21:35] VITALS: BP 118/87
[2024-12-04 21:40] VITALS: BMI 39.0
[2024-12-04 21:48] LABS: % Lymphocytes 12.3 % (20.5-51.1); % Monocytes 7.9 % (1.7-9.3); % Neutrophils 78.5 % (42.2-75.2); Hematocrit 41.6 % (39.0-52.0); Hemoglobin 14.3 g/dL (13.0-18.0); Mean Corp Hgb Conc. 34.4 g/dL (33.0-37.0); Mean Corpuscular Hgb 28.8 pg (27.0-31.0); Mean Corpuscular Volume 83.9 fL (80.0-94.0); Mean Platelet Volume 9.3 fL (7.4-10.4); Platelet Count 245 10^3/uL (130-400); Red Blood Cell Count 4.96 10^6/uL (4.70-6.10); Red Cell Dist. Width 13.1 % (11.5-14.5)
[2024-12-04 21:49] LABS: % Basophils 0.5 % (0-2); % Eosinophils 0.5 % (0-6); % Immature Granulocytes 0.3 % (0-0.5); Absolute Monocytes 0.6 10^3/uL (0.1-0.6); Absolute Neutrophils 6.3 10^3/uL (1.4-6.5); Nucleated Red Blood Cells % 0 % (-)
[2024-12-04 22:00] VITALS: BP 134/99
[2024-12-04 22:16] LABS: Troponin I 0.012 ng/ml
[2024-12-04 22:20] LABS: ALT (SGPT) 14 U/L (0-50); AST (SGOT) 28 U/L (17-59); Alkaline Phosphatase 50 U/L (38-126); Blood Urea Nitrogen 11 mg/dl (9-20); Calcium 8.8 mg/dl (8.4-10.2); Carbon Dioxide 19 mmol/L (22-30); Chloride 103 mmol/L (98-107); Estimated Creatinine Clearance > 125 ml/min; Glucose 112 mg/dl (70-99); Potassium 4.4 mmol/L (3.5-5.1); Sodium 134 mmol/L (135-145); Total Bilirubin 0.9 mg/dl (0.2-1.3); Total Protein 6.8 g/dl (6.3-8.2); eGFR > 60.00
[2024-12-04 22:28] LABS: Magnesium 2.2 mg/dl (1.6-2.3)
[2024-12-04 22:36] LABS: NT-proBNP 606 pg/ml
[2024-12-04 22:59] LABS: TSH Reflex To Free T4 0.42 uIU/ml (0.47-4.68)
--- NOTE | 2024-12-04 22:59 | ED.GENMED ---
History of Present Illness
<SARAY Ball - Last Filed: 12/04/24 23:35>
General
Chief Complaint: Heart Rate Problem
Source: patient
Time Seen by Provider: 12/04/24 22:05
History of Present Illness
History of Present Illness:
This is a 53 y/o male with PMH of Afib s/p ablation 2021, ISAMAR on CPAP and PTSD, who presents to the ER c/o palpitations. He reports the chest palpitations began at 5pm tonight while he was sitting on the couch. He states his smart watch told him he
was tachycardic and in Afib. He took his usual dose today of Metoprolol 50mg BID and an additional 25mg tonight at 8pm in an effort to lower his HR. He admits to associated fatigue and SOB, which he states is typical for him when in Afib. He admits
to mild nausea and a headache with the palpitations earlier today but now resolved. Just 5 days ago on Nov 29, he was in the ER for a similar presentation of Afib with RVR that was treated with Cardizem and discharged in Afib with instructions to
follow-up with his mechanic driver. He admits to today's episode being very similar to 5 days ago. Since discharge 5 days ago, he admits to 1 known episode of Afib on (12/02) while at his Primary Care office who informed him that he was in
Afib. Denies tobacco and alcohol use. Admits to marijuana use. Denies chest pain, fever, vomiting, cough, sore throat, syncope and dizziness.
Past History
<SARAY Ball - Last Filed: 12/04/24 23:35>
Past History
ED Past Medical History: Arrthythmia (PAF), Psychiatric (PTSD) and Other (Obstructive sleep apnea/CPAP, BPH, morbid obesity)
ED Past Surgical History: Cardiac (A-fib ablation 2021 complicated by pericardial effusion requiring drainage) and Other (Partial bladder removal,)
Social History
Tobacco: Non-smoker
Alcohol: Occasional
Drug: Marijuana
Personal: Single
Living: with family
Employment: Employed
Family History
Family History: Other (Noncontributory)
Phy Exam
<SARAY Ball - Last Filed: 12/04/24 23:35>
Physical Exam
Physical Exam:
Eyes: PERRLA, EOMI
Resp: normal respiratory effort; vesicular breath sounds throughout without adventitious sounds; even, quiet breathing
Cardiac: tachycardic rate and irregularly irregular rhythm - Afib
PV: Posterior tibial, dorsalis pedis and radial pulses all 2/4 bilaterally; no edema, swelling or tenderness in LE
Abd: soft, non-distended; non-tender to palpation
Neuro: alert & oriented x3
Course
<Hannah Rivera [facility] - Last Filed: 12/04/24 23:35>
Orders/Labs/Results
Orders:
Orders
12/04/24 21:27
Electrocardiogram (*1) Urgent
Reason for Study: Atrial Fibrillation
EKG- Treatment ONCE
12/04/24 21:41
Cardiac Monitoring- Treatment ONCE
IV Insert/Care/Rem.- Treatment PRN
Pulse Ox/spot Check [RESP] Urgent
Quantity: 1
Special Instructions: ON ROOM AIR
12/04/24 21:43
Complete Blood Count/With Diff Urgent
Comprehensive Metabolic Panel Urgent
Free T4 Urgent
Magnesium Urgent
Comment: ADDON
NT-proBNP Urgent
Comment: ADDON
TSH Reflex To Free T4 Urgent
Comment: ADDON
Troponin I Urgent
12/04/24 22:13
Add On- LAB Urgent
Tests Added?: BNP, Mg, TSH w reflex to free T-4
12/04/24 22:58
Diltiazem HCl [Cardizem] 10 mg IV NOW STA
12/04/24 23:33
Diltiazem 125 mg/125 ml Nss [Cardizem] 125 mg in 125 ml IV NOW
Initial dose in mg/hr, then titrate:: 10
Titrate to keep:: Heart rate 80-100 bpm
Titrate by mg/hr:: 5 mg/hr
Frequency of titrations (minutes):: 15
Maximum dose in mg/hr:: 15
Abnormal Lab Results
12/04/24
21:43
Absolute Lymphs (auto) 1.0 L 10^3/uL
(1.2-3.4)
Neutrophils % 78.5 H %
(42.2-75.2)
Lymphocytes % 12.3 L %
(20.5-51.1)
Sodium 134 L mmol/L
(135-145)
Carbon Dioxide 19 L mmol/L
(22-30)
Glucose 112 H mg/dl
(70-99)
TSH (Reflex) 0.42 L uIU/ml
(0.47-4.68)
12/04/24 21:43
12/04/24 21:43
Vital Signs
Initial and Last Documented VS:
Initial Vital Signs
Temp Pulse Resp BP Pulse Ox
98.5 F 125 24 113/80 98
12/04/24 21:21 12/04/24 21:21 12/04/24 21:21 12/04/24 21:21 12/04/24 21:21
Last Documented Vital Signs
Temp Pulse Resp BP Pulse Ox
98.5 F 67 14 112/70 97
12/04/24 21:21 12/05/24 01:31 12/05/24 01:31 12/05/24 01:31 12/05/24 01:31
<Haley Carranza DO - Last Filed: 12/05/24 08:01>
Orders/Labs/Results
Orders:
Orders
12/04/24 21:27
Electrocardiogram (*1) Urgent
Reason for Study: Atrial Fibrillation
EKG- Treatment ONCE
12/04/24 21:41
Cardiac Monitoring- Treatment ONCE
IV Insert/Care/Rem.- Treatment PRN
Pulse Ox/spot Check [RESP] Urgent
Quantity: 1
Special Instructions: ON ROOM AIR
12/04/24 21:43
Complete Blood Count/With Diff Urgent
Comprehensive Metabolic Panel Urgent
Free T4 Urgent
Magnesium Urgent
Comment: ADDON
NT-proBNP Urgent
Comment: ADDON
TSH Reflex To Free T4 Urgent
Comment: ADDON
Troponin I Urgent
12/04/24 22:13
Add On- LAB Urgent
Tests Added?: BNP, Mg, TSH w reflex to free T-4
12/04/24 22:58
Diltiazem HCl [Cardizem] 10 mg IV NOW STA
12/04/24 23:33
Diltiazem 125 mg/125 ml Nss [Cardizem] 125 mg in 125 ml IV NOW
Initial dose in mg/hr, then titrate:: 10
Titrate to keep:: Heart rate 80-100 bpm
Titrate by mg/hr:: 5 mg/hr
Frequency of titrations (minutes):: 15
Maximum dose in mg/hr:: 15
Abnormal Lab Results
12/04/24
21:43
Absolute Lymphs (auto) 1.0 L 10^3/uL
(1.2-3.4)
Neutrophils % 78.5 H %
(42.2-75.2)
Lymphocytes % 12.3 L %
(20.5-51.1)
Sodium 134 L mmol/L
(135-145)
Carbon Dioxide 19 L mmol/L
(22-30)
Glucose 112 H mg/dl
(70-99)
TSH (Reflex) 0.42 L uIU/ml
(0.47-4.68)
12/04/24 21:43
12/04/24 21:43
Vital Signs
Initial and Last Documented VS:
Initial Vital Signs
Temp Pulse Resp BP Pulse Ox
98.5 F 125 24 113/80 98
12/04/24 21:21 12/04/24 21:21 12/04/24 21:21 12/04/24 21:21 12/04/24 21:21
Last Documented Vital Signs
Temp Pulse Resp BP Pulse Ox
98.5 F 67 14 112/70 97
12/04/24 21:21 12/05/24 01:31 12/05/24 01:31 12/05/24 01:31 12/05/24 01:31
<SARAY Ball - Last Filed: 12/04/24 23:35>
MDM/Problems Addressed
MDM/Problems Addressed:
This is a 54 y/o male who has returned to the ED after he was seen and discharged 5 days ago with a similar episode of Afib with RVR. He admits to palpitations and associated intermittent SOB, nausea, headache, and fatigue while in Afib. He has been
compliant with his Metoprolol 50mg BID and took an extra 25mg prior to arrival at the ED today without benefit. Will start pt on cardizem.
<SARAY Ball - Last Filed: 12/04/24 23:35>
*Critical Care Note
Total Time (30-74mins, 75-104mins- exclusive of procedures): Not Applicable
ED Attending Note
<SARAY Ball - Last Filed: 12/04/24 23:35>
-
Portions of this chart may have been created with voice recognition software.� Occasional wrong word or��sound alike� substitutions may have occurred due to the inherent limitations of voice recognition software.
<Haley Carranza, DO - Last Filed: 12/05/24 08:01>
ED Attending Note
Patient seen and examined by attending physician: Yes
I performed the substantive portion of visit, reviewed & personally made and approve the management plan that is documented in note by myself or LORE.: Yes
ED Attending Note:
This is a 54-year-old obese gentleman who has history of PAF, follows with mechanic driver at [place]. Chronically maintained on flecainide, metoprolol, Eliquis. He underwent PAF ablation 2021 complicated by pericardial effusion requiring emergency
drainage. He was hospitalized here June of this year initially with complaints of palpitations and rapid heart rate but was found to be bradycardic in the 30s. Metoprolol and flecainide doses were decreased to 50 mg each twice daily. After
discharge in June he followed up with his mechanic driver from [place] and metoprolol was further decreased to 25 mg twice daily.
Patient admits that he has since titrated his metoprolol up to 50 mg twice daily due to intermittent palpitations, brief in nature over the past week or 2.
He was evaluated in this ED 5 days ago with complaints of palpitations and found to be in atrial fibrillation with rapid ventricular response. IV Cardizem slowed his rate and after discussion with patient's mechanic driver was recommended for
discharge to home with A-fib at controlled ventricular response. He states A-fib resolved shortly after discharge from the ED and then phone call to his mechanic driver was recommended to increase his metoprolol to 50 mg twice daily although he had
already been taking this dose.
Follow-up with PCP on , 2 days ago he was noted to have A-fib and he admits that he had no palpitations during that visit but was complaining of some moderate fatigue. A-fib resolved shortly after PCP visit but has since returned this
evening and has been persistent despite additional metoprolol 25 mg taken at 8 PM. He does note mild fatigue, palpitations, mild shortness of breath but no cough, no chest pain. No weakness. Similar complaints with previous sporadic episodes of
atrial fibrillation.
He was started on Wegovy 2-1/2 months ago for weight loss. Currently at 0.5 mg weekly. He does admit to moderate nausea at this dose and was prescribed Zofran by PCP but with intermittent palpitations and intermittent A-fib was recommended to
discontinue Zofran as this may be contributing to his atrial fibrillation.
He was due for Wegovy dose on November 29 but he skipped that dose. He admits that nausea has improved.
GENERAL: 54-year-old overweight gentleman appears his stated age. Bright and alert, pleasant, appears in no acute distress.
EYE: pupils equal and reactive
NECK: Supple, no significant adenopathy.
ENT: o/p clr, mmm.
CARDIAC: Irregularly irregular, mildly tachycardic at 90-110
LUNGS: Clear breath sounds bilaterally, no acute respiratory distress,
ABDOMEN: Rotund, soft, without focal tenderness, no r/g, no cvat
NEUROLOGICAL: Alert and oriented, no focal neuro deficits
SKIN: Warm and dry, skin intact.
MUSCULOSKELETAL: No edema, well perfused.
PSYCH: Normal and appropriate interaction.
Patient presents with palpitations, fatigue, mild dyspnea with EKG showing atrial fibrillation with rapid ventricular response of 117. Similar EKG findings just 5 days ago.
I suspect his symptoms are all PAF related but with complaints of shortness of breath must consider an element of CHF.
He admits to feeling well, asymptomatic during periods of normal sinus rhythm and was feeling well throughout the day yesterday.
Has been compliant with Eliquis, no leg pain or swelling, thromboembolism is unlikely.
Labs are pending. Will add thyroid function as well as BNP.
Monitor continues to show atrial fibrillation with improvement in ventricular response currently 80s to 100. Will add small dose of IV Cardizem for improvement in rate control.
I believe patient has been going in and out of A-fib over the past week. At this point we will hold off on electrical cardioversion as patient has been spontaneously converting on his own and uncertain if normal sinus rhythm will persist.
01:10
Patient feeling well.
Working on his computer.
Monitor shows atrial fibrillation with controlled ventricular response 70 to 80s.
Labs are unremarkable. Minimally low TSH with normal free T4. BNP of 600. Normal troponin.
He continues to deny shortness of breath, lungs are clear to auscultation. No chest pain.
Will discontinue Cardizem. Consider an IV dose of metoprolol to continue rate control.
Our plan is for discharge to home with recommendation for prompt follow-up with his mechanic driver.
Discharge Plan
Departure
Patient Disposition: Home (Routine Discharge)
Date of Disposition: 12/05/24
Time of Disposition: :59
Patient with high blood pressure during this ER visit?: No
Condition: Good
Discharge Problem:
Paroxysmal atrial fibrillation
Instructions: Atrial Fibrillation (DC)
Prescriptions:
No Action
Ambien
10 mg PO HS PRN (Reason: sleep)
tamsulosin 0.4 mg Capsule
0.8 mg PO DAILY@1400
buspirone 30 mg Tablet
30 mg PO BID
loratadine [Claritin] 10 mg Tablet
10 mg PO DAILY PRN (Reason: allergies)
bupropion HCl [Wellbutrin XL] 300 mg Tablet Extended Release 24 Hr
300 mg PO DAILY@1400
bupropion HCl [Wellbutrin XL] 150 mg Tablet Extended Release 24 Hr
150 mg PO DAILY@0200
Eliquis 5 mg Tablet
5 mg PO BID
Medical Marijuana
1 dose PO DAILY PRN (Reason: PTSD/anxiety)
Rx Instructions:
Patient reports he uses edible or tincture daily
gabapentin
600 mg PO BID PRN (Reason: Neurological Condition)
finasteride 5 mg tablet
5 mg PO DAILY@0200
flecainide 50 mg tablet
100 mg PO Q12H
metoprolol succinate 25 mg tablet extended release 24 hr
50 mg PO BID
Referrals:
YOLY TAYLOR MD [Family Provider] -
Activity Restrictions/Additional Instructions:
Touch base with your mechanic driver on Friday regarding atrial fibrillation.
Interventions
Interventions:
*Risk Screen - Suicide Last Done: 12/04/24 21:21
*General Assessment Last Done: 12/04/24 21:21
*Neglect/Abuse Screening Last Done: 12/04/24 21:21
*ED COVID-19 Vaccine History Last Done: 12/04/24 21:21
*Nursing Disposition Last Done: 12/05/24 02:30
ED- Cardiac Assessment Last Done: 12/04/24 22:07
ED- Pulmonary Assessment Last Done: 12/04/24 22:07
Discharge Date and Time
Discharge Date/Time: 12/05/24 02:41
Print Language: ARMENIAN
[2024-12-04 23:00] VITALS: BP 120/82
[2024-12-04 23:26] LABS: Free T4 1.33 ng/dl (0.78-2.19)
[2024-12-04] MEDS: CARDIZEM 10 MG IV (23:40)
[2024-12-04] MEDS: CARDIZEM 125 IV (23:43)
[2024-12-05 00:01] VITALS: BP 106/60
[2024-12-05 01:00] VITALS: BP 98/54
[2024-12-05 01:31] VITALS: BP 112/70
== END 2024-12-05 02:41 | disposition home or self-care (01) ==
LOC: EMR 21:15
PROVIDERS: Emergency Medicine; EMERGENCY PHYSICIAN Emergency Medicine; FAMILY PHYSICIAN Family Medicine
DX: I48.0 Paroxysmal atrial fibrillation (principal); F43.10 Post-traumatic stress disorder, unspecified; G47.33 Obstructive sleep apnea (adult) (pediatric); N40.0 Benign prostatic hyperplasia without lower urinary tract symptoms; E66.01 Morbid (severe) obesity due to excess calories; Z79.01 Long term (current) use of anticoagulants; Z79.899 Other long term (current) drug therapy
CPT/HCPCS: 99283; 96374; 96376; 80053; 83735; 83880; 84439; 84443; 84484; 85025; 93005